=== PATIENT | male | born 1965 | race Two or more races ===

== ENCOUNTER 2019-01-01 12:20 | Day surgery (SDC) | payer BC ==
[2019-01-01] MEDS ORDERED: MIDAZOLAM 1 MG/ML 2 ML INJ ×2 (14:26)
[2019-01-01] MEDS ORDERED: FENTAnyl 50 MCG/ML VIAL (14:26)
== END 2019-01-01 18:05 | disposition home or self-care (01) ==
LOC: GIL 12:20
DX: Z12.11 Encounter for screening for malignant neoplasm of colon (principal); K64.8 Other hemorrhoids; K29.30 Chronic superficial gastritis without bleeding
CPT/HCPCS: 43239; 88305; 88312